=== PATIENT | female | born 1980 | race Caucasian/White ===

== ENCOUNTER 2017-03-09 20:33 | Emergency (ER) | payer OTHER ==
[~2017-03-09] VITALS: Ht 160 cm; Wt 119.0 kg
[2017-03-09 20:59] VITALS: BP 118/73
--- NOTE | 2017-03-09 23:41 | NUR ---
36Y F BIB FAMILY C/O LEFT LOWER AB PAIN X 3 DAYS. PT DENIES ANY N/V/D/, SOB, CP AT THE MOMENT. PT IS AAOX4, BREATHING IS UNLABORED AND CLEAR BILAT. PT STATES PAIN IS 8/10 NON RADIATING AND INTERMITTENT.
[2017-03-09] MEDS: fentaNYL 0.05 MG/ML VIAL IM ONE (23:48)
--- NOTE | 2017-03-10 00:05 | NUR ---
Patient discharged with v/s stable. Written and verbal after care instructions given and explained. Patient alert, oriented and verbalized understanding of instructions. Ambulatory with steady gait. All questions addressed prior to discharge. ID band removed. Patient advised to follow up with PMD. Rx of NORCO 5/325 AND MIRALAX AND LACTULOSE given. Patient educated on indication of medication including possible reaction and side effects. Opportunity to ask questions provided and answered.
[2017-03-10 00:06] VITALS: BP 122/79
== END 2017-03-10 00:05 | disposition home or self-care (01) ==
LOC: MED 20:33
DX: K59.00 Constipation, unspecified (principal); M54.5 Low back pain; J45.909 Unspecified asthma, uncomplicated; Z88.5 Allergy status to narcotic agent; Z88.8 Allergy status to other drugs, medicaments and biological substances
CPT/HCPCS: 81002; 81025; 96372; 99283; J3010

== ENCOUNTER 2019-11-06 21:49 | Emergency (ER) | payer OTHER ==
[~2019-11-06] VITALS: Ht 162.6 cm; Wt 113.4 kg
[2019-11-06 21:53] VITALS: BP 108/77
--- NOTE | 2019-11-06 22:00 | NUR ---
39 Y/O C/O RIGHT HAND/WRIST PAIN AFTER HITTING IT ON SHARP CORNER X2 HRS AGO. PT STATES 03/24 PIAN. NO NUMBNESS/TINGLING. NO DEFORMITIES. BILAT PERIFPHERAL PULSES STRONG/PRESENT. CAP REFILL <3 SECONDS. NO OPEN AREAS. PT POSITIONED FOR COMFORT IN CHAIR. ER MD AWARE. CONTINUE TO MONITOR.
[2019-11-06] MEDS ORDERED: ACETAMINOPHEN EXTRA STRENGTH 500 MG TAB PO ONE (22:20)
--- NOTE | 2019-11-06 22:36 | NUR ---
PTS RIGHT HAND WAS PLACED IN A V[place]CRO SPLINT. [place] [facility] [place]
[2019-11-06 22:47] VITALS: BP 111/86
--- NOTE | 2019-11-06 22:47 | NUR ---
Patient discharged with v/s stable. Right velcro wrist splint in place, secure, with good circulation. She states 4/10 tollerable pain. Written and verbal after care instructions given and explained. Patient alert, oriented and verbalized understanding of instructions. Ambulatory with steady gait. All questions addressed prior to discharge. ID band removed. Patient advised to follow up with PMD. Rx of Acetaminophen given. Patient educated on indication of medication including possible reaction and side effects. Opportunity to ask questions provided and answered.
== END 2019-11-06 22:47 | disposition home or self-care (01) ==
LOC: MED 21:49
DX: S60.221A Contusion of right hand, initial encounter (principal); J45.909 Unspecified asthma, uncomplicated; Z88.8 Allergy status to other drugs, medicaments and biological substances; W22.8XXA Striking against or struck by other objects, initial encounter; Y93.89 Activity, other specified; Y92.89 Other specified places as the place of occurrence of the external cause; Y99.8 Other external cause status
CPT/HCPCS: 73130; 99283